=== PATIENT | female | born 1950 | race Caucasian/White ===

== ENCOUNTER 2018-03-08 17:40 | Emergency (ER) | payer OTHER ==
[~2018-03-08] VITALS: Ht 157.5 cm; Wt 104.3 kg
[2018-03-08] MEDS ORDERED: GLIPIZIDE10 MG (18:05)
[2018-03-08] MEDS ORDERED: FORTAMET1000 MG (18:05)
[2018-03-08] MEDS ORDERED: AUTOPEN1 EACH (18:06)
== END 2018-03-08 23:58 | disposition home or self-care (01) ==
LOC: ER 17:40
DX: E11.21 Type 2 diabetes mellitus with diabetic nephropathy (principal)